=== PATIENT | male | born 1955 | race Caucasian/White ===

== ENCOUNTER 2025-04-13 14:32 | Outpatient (AMB) | payer MEDICARE, MEDICAID, SELFPAY ==
--- NOTE | 2025-04-13 14:35 | MHC.OFFVIS ---
Vital Signs 04/13/25 14:38 Height 5 ft 3 in BMI Reason not done Patient refused/unable BP 180/76 H Blood Pressure Location Lt brachial Position Sitting Pulse 118 H Pulse Source Pulse Oximeter Pulse Oximetry (%) 92 Oxygen Delivery Method Nasal Cannula Oxygen Flow Rate 1 Intake Visit Reasons: copd Xm1 Tank Driver Required: No Accompanied by: Spouse Allergies albuterol Allergy (Severe, Verified 04/13/25 14:39) Unknown HPI Comments Details: The patient is here for pulmonary evaluation. The patient is a 69-year-old gentleman known advanced COPD, chronic respiratory failure on oxygen who was getting his care at [facility]. His insurance will no longer covered a [facility] so he was told he needed to find new provide us. Therefore he was brought here to [place]. He has been on Atrovent inhaler. Has not tolerated long-acting muscarinic antagonist. Has not tolerated powdered inhalers. Has not tolerated long-acting or short-acting beta agonist. Therefore he is very limited. He has had worsening chest tightness. Significant wheezing and difficulty with any kind of activity. The Atrovent has been partially helpful. He also has been on oxygen. He has been on 2 L per then cut down to 1 L because of headaches and sinus pressure. Seems like his symptoms did get better when he dropped down his medication. He does have significant wheezing on exam. He is not moving much air. The patient has been started on a prednisone taper and also some doxycycline to treat him for a COPD exacerbation. In the meantime he continues to be on Daliresp which I will send him a prescription. And will go ahead and start him on budesonide nebs via the nebulizer. We can also consider Ohtuvayre if he has no better. We can also consider theophylline and also consider biologic therapy such as Nucala Dupixent independent his eosinophils. He has had significant pneumoconiosis with work exposures. His last PFTs demonstrated significant disease. Will plan to repeat the blood work and also repeat PFTs prior to his return. Will maximize his respiratory therapy as much as possible and he will continue using his oxygen. Also to note the patient can not tolerate any mask on his face therefore he will not tolerate noninvasive ventilation of BiPAP therapies at this time. [facility] Medical History (Updated 04/13/25 @ 21:23 by Byron Mireles MD) Pulmonary nodules Pneumoconiosis ILD (interstitial lung disease) Chronic respiratory failure with hypoxia COPD (chronic obstructive pulmonary disease) Social History (Updated 04/13/25 @ 14:40 by Rhina Graham CMA) Patient Tobacco Use Status: Former Tobacco user Review of Systems Const Denies fever(s) Eyes Reports no additional complaints ENT Reports nasal congestion Card Denies chest pain, Reports dyspnea and Reports dyspnea on exertion Resp Reports chest congestion, Reports cough, Reports dyspnea, Reports dyspnea on exertion and Reports wheezing GI Reports no additional complaints Musc Reports myalgias Skin/Breast Denies rash Neuro Reports no additional complaints Enrico/Lymph Reports no additional complaints Aller/Immun Reports wheezing Physical Exam Vital Signs: Last Vital Signs Pulse 118 H 04/13/25 14:38 BP 180/76 H 04/13/25 14:38 Pulse Ox 92 04/13/25 14:38 Oxygen Delivery Method Nasal Cannula 04/13/25 14:38 Oxygen Flow Rate 1 04/13/25 14:38 Const General: comfortable HEENT Head: Yes normocephalic Neck Neck: Yes supple Chest Chest palpation & inspection: normal inspection of the chest Resp Effort & Inspection: normal respiratory effort and prolonged expiratory phase Auscultation: wheezes and diminished lung sounds Cardio Heart sounds: S1 normal heart sound present and S2 normal heart sound present GI Palpation (GI): Soft to palpation Skin General skin exam: no rashes or lesions noted Extrem General: No cyanosis Assessment & Plan Assessment & Plan (1) COPD (chronic obstructive pulmonary disease): Code(s): J44.9 - Chronic obstructive pulmonary disease, unspecified Category: Medical Qualifiers: COPD type: COPD with acute exacerbation Qualified Code(s): J44.1 - Chronic obstructive pulmonary disease with (acute) exacerbation (2) Chronic respiratory failure with hypoxia: Code(s): J96.11 - Chronic respiratory failure with hypoxia Category: Medical (3) ILD (interstitial lung disease): Code(s): J84.9 - Interstitial pulmonary disease, unspecified Category: Medical (4) Pneumoconiosis: Code(s): J64 - Unspecified pneumoconiosis Category: Medical (5) Pulmonary nodules: Code(s): R91.8 - Other nonspecific abnormal finding of lung field Category: Medical Plan start Budesonide nebs BID NADEEM as needed continue Daliresp Consider Ohtuvayre consider Biologic therapy CXR PFTs Bloodwork Start CPT with acapella valve continue oxygen supplementation F/U 2 months Medications: New roflumilast (Daliresp) 500 mcg PO DAILY 30 tabs 11RF 30 days budesonide 0.5 mg (2 mL) inhalation BID 120 mL 11RF 30 days J44.9 - Chronic obstructive pulmonary disease, unspecified prednisone PO daily; Take 2 tabs daily x 5 days, then 1 tablet daily x 5 days 15 tabs 0RF 10 days doxycycline hyclate 100 mg PO BID 20 caps 0RF 10 days ipratropium bromide 17 mcg/actuation (Atrovent HFA) 2 puffs inhalation QID 12.9 grams 11RF 30 days Coding Level of Care Code New Pt Level 5 (79108) Diagnoses Chronic obstructive pulmonary disease with acute exacerbation J44.1 COPD type: COPD with acute exacerbation Chronic respiratory failure with hypoxia J96.11 ILD (interstitial lung disease) J84.9 Pneumoconiosis J64 Pulmonary nodules R91.8 Time Spent (min) 60
[2025-04-13 14:38] VITALS: BP 180/76; PULSE 118; O2SAT 92
--- OUTSIDE RECORDS SUMMARY | 2025-04-13 17:25 | XMS_ITS | Clinical Summary ---
Author Organization [address] [facility] Address [address] [place] [address] Phone Care Team Providers Care Business Services Tech Name Role Phone Physician, No Pcp Primary Care Provider Unavaila ble Allergies Active Allergy Reactions Criticality Noted Date Comments Albuterol 08/30/2022 cough Medications roflumilast (DALIRESP) 500 mcg tablet Take 1 tablet (500 mcg total) by mouth 1 (one) time each day. 4 Active amLODIPine (NORVASC) 10 mg tablet Take 1 tablet (10 mg total) by mouth 1 (one) time each day. 4 Active guaiFENesin (MUCINEX) 600 mg 12 hr tablet Take 2 tablets (1,200 mg total) by mouth 2 (two) times a day. 3 Active tiotropium (Spiriva Respimat) 2.5 mcg/actuation inhalation spray Inhale 2 puffs by mouth 1 (one) time each day. 1 each 5 08/03/19 26 Active albuterol 2.5 mg /3 mL (0.083 %) nebulizer solution Take 3 mL (2.5 mg total) by nebulization every 6 (six) hours if needed for wheezing. 300 mL 3 5 08/06/19 26 Active levalbuterol (Xopenex HFA) 45 mcg/actuation inhaler Inhale 2 puffs by mouth every 6 (six) hours if needed for wheezing. 15 g 5 08/07/19 26 Active ipratropium (ATROVENT) 0.02 % nebulizer solution Take 2.5 mL (0.5 mg total) by nebulization every 6 (six) hours if needed (wheezing). 300 mL 5 08/12/19 26 Active ipratropium HFA (Atrovent HFA) 17 mcg/actuation inhalerIndicati ons:Other emphysema ([facility] V24, [facility] V28) Inhale 2 puffs by mouth 4 (four) times a day. 12.9 g 11 5 10/03/19 26 Active ipratropium HFA (ATROVENT HFA) 17 mcg/actuation inhaler Inhale 2 puffs by mouth 4 (four) times a day. 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 08/24/2022 Cataract of left eye 08/24/2022 Pulmonary emphysema ([facility] V24, [facility] V28) 0 08/24/2022 Surgical History Surgery Date Site/Laterality Comments EYE SURGERY PROCEDURE: HISTORICAL EYE SURGERY; COMMENT: lasik in left eye Social History Tobacco Use Types Packs/Day Years Used Date Smoking Tobacco: Former Smokeless Tobacco: Former Alcohol Use Standard Drinks/Week Comments Not Currently 0 (1 standard drink = 0.6 oz pur e alcohol) Sex and Gender Information Value Date Recorded Sex Assigned at Not on file Legal Sex Male 8:50 PM EST Gender Identity Not on file Sexual Orientation Not on file Obstetrics History Last Filed Vital Signs Vital Sign Reading Time Taken Comments Blood Pressure 122/80 04/13/2024 3:32 PM EDT Pulse 110 04/13/2024 3:32 PM EDT Temperature - - Respiratory Rate - - Oxygen Saturation 90% 04/13/2024 3:3 2 PM EDT 2L OF OXYGEN Inhaled Oxygen Concentration - - Weight 62.9 kg (138 lb 9.6 oz) 04/13/20 3:32 PM EDT Height 160 cm (5' 3 ) 04/13/2024 3:32 PM EDT Body Mass Index 24.55 04/13/2024 3:32 PM EDT Plan of Treatment Health Maintenance Due Date Last Done Comments Colorectal Cancer Screening: Colonoscopy 1955 DTaP,Tdap,and Td Vaccines (1 - Tdap) 09/19/1975 Pneumococcal Vaccine: 50+ Ye ars (1 of 2 - PCV) 09/19/1975 Zoster Vaccines (1 of 2) 2006 RSV Immunization Adult Patie nts (1 - Risk 60-74 years 1-dose series) 2016 Abdominal Aortic Aneurysm (A AA) Screen 07/26/2023 Falls Risk Assessment 07/26/2023 Medicare Annual Wellness Visit 07/26/2023 Social Influencers of Health Screening 07/26/2023 Hypertension/CHF/CAD Annual BMP Blood Test 08/24/2023 08/24/2022 Depression Screening 07/01/2024 COVID-19 Vaccine (1 - 2023-2 5 season) 2025 Influenza Vaccine (#1) 2025 Cholesterol Screening (Lipid Panel) 08/24/2027 08/24/2022 Hepatitis C Screening Completed 08/24/2022 HIB Vaccines Aged Out No longer eligi ble based on patient's age to complete this topic HPV Vaccines Aged Out No longer eligi ble based on patient's age to complete this topic Hepatitis A Vaccines Aged Out No long er eligible based on patient's age to complete this topic Hepatitis B Vaccines Aged Out No long er eligible based on patient's age to complete this topic IPV Vaccines Aged Out No longer eligi ble based on patient's age to complete this topic MMR Vaccines Aged Out No longer eligi ble based on patient's age to complete this topic Meningococcal ACWY Vaccine Aged Out N o longer eligible based on patient's age to complete this topic Meningococcal B Vaccine Aged Out No l onger eligible based on patient's age to complete this topic RSV Immunization Patients Un petros 20 months Aged Out No longer eligible b ased on patient's age to complete this topic Varicella Vaccines Aged Out No longer eligible based on patient's age to complete this topic Procedures Procedure Name Priority Date/Time Associated Diagnosis Comments HEPATITIS C SCREENING Routine 08/24/2022 ANNUAL BMP BLOOD TEST Routine 08/24/2022 LIPID PANEL Routine 08/24/2022 from Last 3 Months or Most Recently Relevant to Health Maintenance Results * Annual BMP Blood Test (08/24/2022) Annual BMP Blood Test abstracted us Historical Provider HEALTH MAINTENANCE Final Result * Hepatitis C Screening (08/24/2022) Pathologist [facility] Hepatitis C Screening abstracted Historical Provider HEALTH MAINTENANCE Final Result * (ABNORMAL) Lipid panel (08/24/2022) Pathologist [facility] LDL/HDL Ratio 3 0 - 4 Triglycerides 104 0 - 150 mg/dL Cholesterol 212(A) 0 - 200 mg/dL HDL 64 >=40 mg/dL LDL Cholesterol 128(A) 0 - 100 mg/dL Blood Venous blood specimen / Unknown Historical Provider LAB BLOOD ORDERABLES Diana l Result from Last 3 Months or Most Recently Relevant to Health Maintenance Insurance [facility] MEDICARE ADVANTAGE on file MEDICAID - [place] Care Teams Business Services Tech Relationship Specialty Start Date End Date Physician, No Pcp PCP - General 10/15/24
== END 2025-04-13 15:10 | disposition home or self-care (01) ==
LOC: HO.HPS 14:32
PROVIDERS: PCP Internal Medicine Critical Care Medicine; Visit Provider Hospitalist
DX: J44.1 Chronic obstructive pulmonary disease with (acute) exacerbation (principal); J96.11 Chronic respiratory failure with hypoxia; J84.9 Interstitial pulmonary disease, unspecified; J64 Unspecified pneumoconiosis; R91.8 Other nonspecific abnormal finding of lung field
CPT/HCPCS: 99205

== ENCOUNTER → 2025-04-13 14:32 | Outpatient (BNVA) | payer MEDICARE, MEDICAID, SELFPAY | PROVIDERS: PCP Internal Medicine Critical Care Medicine; Visit Provider Hospitalist | DX: J44.1 Chronic obstructive pulmonary disease with (acute) exacerbation (principal); J96.11 Chronic respiratory failure with hypoxia; J84.9 Interstitial pulmonary disease, unspecified; J64 Unspecified pneumoconiosis; R91.8 Other nonspecific abnormal finding of lung field | CPT/HCPCS: 99202 ==